=== PATIENT | male | born 1945 | race Caucasian/White ===

== ENCOUNTER 2016-09-21 10:03 | Day surgery (SDC) | payer OTHER ==
--- NOTE | ~2016-09-21 | EGD ---
EGD REPORT [facility] [address] [place] [address] NAME: SEGUNDO KOCH : [birth year] STATUS : REG [facility]#: [id number] AGE: 71 ADM/REG DATE : 09/21/16 MR#: [id number] REPORT SERV DATE: 09/21/16 DICTATED BY: GARDENIA PABON DATE: 09/21/16 REPORT STATUS : Draft [facility] DATE: 09/21/16 Endoscopy Center Patient Name: Segundo Koch Date of : 1945 Attending MD: GARDENIA PABON MD Procedure Date No Time: 09/21/2016 Procedure: Colonoscopy Indications: Colon cancer screening in patient at increased risk: Family history of colon polyps, This is the patient's first colonoscopy Referring MD: HARPREET JOHNSON III Medicines: See the Anesthesia note for documentation of the administered medications Complications: No immediate complications. Procedure: Pre-Anesthesia Assessment: - ASA Grade Assessment: III - A patient with severe systemic disease. After I obtained informed consent, the scope was passed under direct vision. Throughout the procedure, the patient's blood pressure, pulse, and oxygen saturations were monitored continuously. The PCF [id number] was introduced through the anus and advanced to the terminal ileum, with identification of the appendiceal orifice and IC valve. The colonoscopy was performed without difficulty. The patient tolerated the procedure well. The quality of the bowel preparation was adequate. Findings: The perianal and digital rectal examinations were normal. Diverticula were found in the entire colon. Internal hemorrhoids were found during retroflexion and were small. Impression: - Diverticulosis in the entire examined colon. - Internal hemorrhoids. Recommendation: - Patient has a contact number available for emergencies. The signs and symptoms of potential delayed complications were discussed with the patient. Return to normal activities tomorrow. Written discharge instructions were provided to the patient. - Regular diet. - Continue present medications. - Repeat colonoscopy in 5 years for screening purposes. Procedure Code(s): --- Professional --- EGD REPORT [address] [address] NAME: SEGUNDO KOCH : [birth year] STATUS : REG [facility]#: [id number] AGE: 71 ADM/REG DATE : 09/21/16 MR#: [id number] REPORT SERV DATE: 09/21/16 DICTATED BY: GARDENIA PABON DATE: 09/21/16 REPORT STATUS : Draft TRANSCRIBED BY: [employer] DATE: 09/21/16 [id number], Colonoscopy, flexible, proximal to splenic flexure; diagnostic, with or without collection of specimen(s) by brushing or washing, with or without colon decompression (separate procedure) Diagnosis Code(s): --- Professional --- K64.8, Other hemorrhoids K57.30, Diverticulosis of large intestine without perforation or abscess without bleeding Z12.11, Encounter for screening for malignant neoplasm of colon Z83.71, Family history of colonic polyps CPT copyright 2013 [employer]. All rights reserved. The codes documented in this report are preliminary and upon information coder review may be revised to meet current compliance requirements. Gardenia Pabon MD GARDENIA PABON MD 09/21/2016 11:22 AM This report has been signed electronically. Number of Addenda: 0 Note Initiated On: 09/21/2016 10:56 AM Scope Withdrawal Time 0 hours 8 minutes 35 seconds [address] [place] [address]
--- NOTE | ~2016-09-21 | EGD ---
EGD REPORT [facility] [address] [place] [address] NAME: SEGUNDO KOCH : [birth year] STATUS : REG [facility]#: [id number] AGE: 71 ADM/REG DATE : 09/21/16 MR#: [id number] REPORT SERV DATE: 09/21/16 DICTATED BY: GARDENIA PABON DATE: 09/21/16 REPORT STATUS : Draft [facility] DATE: 09/21/16 Endoscopy Center Patient Name: Segundo Koch Date of : 1945 Attending MD: GARDENIA PABON MD Procedure Date No Time: 09/21/2016 Procedure: Upper GI endoscopy Indications: Gastro-esophageal reflux disease Referring MD: HARPREET JOHNSON III Medicines: See the Anesthesia note for documentation of the administered medications Complications: No immediate complications. Procedure: Pre-Anesthesia Assessment: - ASA Grade Assessment: III - A patient with severe systemic disease. After obtaining informed consent, the endoscope was passed under direct vision. Throughout the procedure, the patient's blood pressure, pulse, and oxygen saturations were monitored continuously. The GIF [id number] was introduced through the mouth, and advanced to the second part of duodenum. The upper GI endoscopy was accomplished without difficulty. The patient tolerated the procedure well. Findings: The examined duodenum was normal. The entire examined stomach was normal. The cardia and gastric fundus were normal on retroflexion. A small hiatus hernia was present. Impression: - Normal examined duodenum. - Normal stomach. - Hiatus hernia. Recommendation: - Patient has a contact number available for emergencies. The signs and symptoms of potential delayed complications were discussed with the patient. Return to normal activities tomorrow. Written discharge instructions were provided to the patient. - Regular diet. - Continue present medications. Procedure Code(s): --- Professional --- 43679, Esophagogastroduodenoscopy, flexible, transoral; diagnostic, including collection of specimen(s) by EGD REPORT [facility] [address] [place] [address]. [address] NAME: SEGUNDO KOCH : [birth year] STATUS : REG [facility]#: [id number] AGE: 71 ADM/REG DATE : 09/21/16 MR#: [id number] REPORT SERV DATE: 09/21/16 DICTATED BY: GARDENIA PABON DATE: 09/21/16 REPORT STATUS : Draft TRANSCRIBED BY: [employer] DATE: 09/21/16 brushing or washing, when performed (separate procedure) Diagnosis Code(s): --- Professional --- K44.9, Diaphragmatic hernia without obstruction or gangrene K21.9, Gastro-esophageal reflux disease without esophagitis CPT copyright 2013 [employer]. All rights reserved. The codes documented in this report are preliminary and upon physician coder review may be revised to meet current compliance requirements. Gardenia Pabon MD GARDENIA PABON MD 09/21/2016 11:05 AM This report has been signed electronically. Number of Addenda: 0 Note Initiated On: 09/21/2016 10:52 AM Scope Withdrawal Time 0 hours 0 minutes 0 seconds [address] [place] [address]
[~2016-09-21 10:03] MED LIST: ACET500CAP PO; ALEVE220 MG PO; ASA5GR PO; ASAB PO; BEN25 PO; CENTRUM PO; CLARIT10 PO; COREG3 PO; FLOMAX4 PO; FLONASE NAS; IMDUR30 PO; ISORDTAB5 PO; LIPITOR20 PO; LIPITOR40 PO; MELA3 PO; MULTIVITAMI1 PO; NAP500 PO; NASONEX NAS; NITROSTAT0.4 MG SL; OMEGA 3550 MG PO; PCET PO; PLAVIX PO; PRIN5 PO; PROSCAR5 PO; PROTONIX PO; REM15 PO; SAW PALMETT1 PO; ZOFRAN4 PO; ZOLOFT25 MG PO
== END 2016-09-21 23:59 | disposition home or self-care (01) ==
LOC: DMU 10:03
PROVIDERS: Internal Medicine Gastroenterology
PROC: 0DJ08ZZ Inspection of Upper Intestinal Tract, Via Natural or Artificial Opening Endoscopic (ICD-10-PCS; principal; 2016-09-21 11:30)
PROC: 0DJD8ZZ Inspection of Lower Intestinal Tract, Via Natural or Artificial Opening Endoscopic (ICD-10-PCS; 2016-09-21 11:30)
DX: Z12.11 Encounter for screening for malignant neoplasm of colon (principal); K57.30 Diverticulosis of large intestine without perforation or abscess without bleeding; K64.8 Other hemorrhoids; K21.9 Gastro-esophageal reflux disease without esophagitis; K44.9 Diaphragmatic hernia without obstruction or gangrene; I10 Essential (primary) hypertension; M19.90 Unspecified osteoarthritis, unspecified site; M10.9 Gout, unspecified; F41.9 Anxiety disorder, unspecified; Z90.49 Acquired absence of other specified parts of digestive tract; Z95.1 Presence of aortocoronary bypass graft; Z83.71 Family history of colonic polyps
CPT/HCPCS: 43235; G0105